=== PATIENT | female | born 1990 | race Caucasian/White ===

== ENCOUNTER 2022-07-30 18:39 | Inpatient (IN) | payer BC ==
[2022-07-30 19:03] VITALS: BMI 26.1
[2022-07-30] MEDS ORDERED: Methylergonovine 0.2 MG/ML VIAL IM PRN (20:16)
[2022-07-30] MEDS ORDERED: Ondansetron PF 4 MG/2 ML Vial IVP PRN ×2 (20:16→22:42)
[2022-07-30] MEDS ORDERED: Acetaminophen 500 MG TAB PO PRN (20:16)
[2022-07-30] MEDS ORDERED: Carboprost 250 MCG/ML AMP IM PRN (20:16)
[2022-07-30] MEDS ORDERED: Promethazine HCl 25 MG/ML VIAL IM PRN ×2 (20:16→22:42)
[2022-07-30] MEDS ORDERED: hydrALAZINE 20 MG/ML VIAL SLOW IVP PRN (20:16)
[2022-07-30] MEDS ORDERED: Diphenoxylate HCl/Atropine Tablet PO PRN (20:16)
[2022-07-30] MEDS ORDERED: Misoprostol 200 MCG TAB PR PRN (20:16)
[2022-07-30] MEDS ORDERED: Lidocaine 1% (PF) 30 ML VIAL SC PRN (20:16)
[2022-07-30] MEDS ORDERED: Butorphanol Tartrate 1 MG/ML VIAL SLOW IVP PRN (20:16)
[2022-07-30] MEDS ORDERED: Lactated Ringer's 1,000 ML IV SCH (20:30)
[2022-07-30] MEDS ORDERED: NS w/ Oxytocin 30 units 500 ML IV SCH ×2 (20:30)
[2022-07-30 21:11] LABS: Hemoglobin 12.1 g/dL (12.0-15.5); Mean Corpuscular HGB CONC 34.9 g/dL (32.0-36.0); Mean Corpuscular Hemoglobin 31.8 pg (27.0-33.0); Mean Corpuscular Volume 91.3 fl (81.6-98.3); Mean Platelet Volume 10.5 fl (7.4-10.4); Platelet Count 245 10x3/uL (150-450); RBC Distribution Width 13.6 % (11.5-14.5); White Blood Cell (WBC) Count 10.8 10x3/uL (3.5-10.5)
[2022-07-30] MEDS ORDERED: Fentanyl 2 mcg/Bup 0.1% Cadd 100 ML ONE (21:22)
[2022-07-30] MEDS ORDERED: Lactated Ringer's 500 ML IV PRN (22:42)
[2022-07-30] MEDS ORDERED: Moisturizing Cream (Eucerin) 113 GM JAR TOP PRN (22:42)
[2022-07-30] MEDS ORDERED: Acetaminophen 325 MG TAB PO PRN (22:42)
[2022-07-30] MEDS ORDERED: diphenhydrAMINE 50 MG/ML VIAL IVP PRN (22:42)
[2022-07-30] MEDS ORDERED: Naloxone HCl 0.4 mg/ml Vial IVP PRN ×2 (22:42)
[2022-07-30] MEDS ORDERED: ePHEDrine Sulfate 50 MG/10 ML VIAL SLOW IVP PRN (22:42)
[2022-07-30] MEDS ORDERED: Fentanyl 2 mcg/Bupivacaine 0.1% Cassette 100 ML EPIDURAL SCH (22:45)
[2022-07-30] MEDS ORDERED: Communication Order-Pharmacy FS SCH (22:45)
[2022-07-30 22:53] LABS: Syphilis Antibody Nonreactive (Nonreactive); Syphilis Antibody Index 0.03 S/CO (<1.00 Non-Reactive)
[2022-07-30 22:54] LABS: HBSAg Index 0.15 S/CO (0-0.99); Hep B Surf Ag Non-Reactive S/CO (NonReactive)
[2022-07-31 01:02] LABS: SARS-CoV-2 NAA Rapid Test Not Detected (NotDetected)
[2022-07-31] MEDS ORDERED: Bupivacaine PF 0.5% 30 ML VIAL ONE (11:00)
[2022-07-31] MEDS ORDERED: Bisacodyl 10 MG SUPP PR PRN (11:51)
[2022-07-31] MEDS ORDERED: hydrALAZINE 20 MG/ML VIAL SLOW IVP PRN (11:51)
[2022-07-31] MEDS ORDERED: Ondansetron PF 4 MG/2 ML Vial IVP PRN (11:51)
[2022-07-31] MEDS ORDERED: Boostrix 0.5 ML (Tdap) VIAL (>/=7 yrs of age) IM ONE (11:51)
[2022-07-31] MEDS ORDERED: Preparation H Ointment 28 GM TUBE PR PRN (11:51)
[2022-07-31] MEDS ORDERED: Milk Of Magnesia 30 ML UDCUP PO PRN (11:51)
[2022-07-31] MEDS ORDERED: Lanolin Ointment 7 GM TUBE TOP PRN (11:51)
[2022-07-31] MEDS ORDERED: diphenhydrAMINE 25 MG CAP PO PRN (11:51)
[2022-07-31] MEDS ORDERED: Witch Hazel-Glycerin 1 EACH JAR TOP PRN (11:53)
[2022-07-31] MEDS ORDERED: NS w/ Oxytocin 30 units 500 ML IV SCH (12:00)
[2022-07-31] MEDS: Ferrous Sulfate 325 MG TAB PO SCH (13:58)
[2022-07-31] MEDS ORDERED: Ibuprofen 800 MG TAB PO SCH (14:45)
[2022-07-31] MEDS: Ibuprofen 800 MG TAB PO SCH (21:47)
[2022-07-31] MEDS: Docusate 100 MG CAP PO SCH (21:47)
[2022-07-31] MEDS ORDERED: Zolpidem Tartrate 5 MG TAB PO PRN (23:00)
[2022-07-31] MEDS ORDERED: HYDROcodone/Acetaminophen 5/325 mg Tablet PO PRN ×2 (23:00)
[2022-08-01] MEDS: Ibuprofen 800 MG TAB PO SCH ×2 (05:26→13:40)
[2022-08-01] MEDS ORDERED: Prenatal Vitamin 1 TAB PO SCH (09:00)
[2022-08-01] MEDS: Docusate 100 MG CAP PO SCH (09:10)
[2022-08-01] MEDS: Ferrous Sulfate 325 MG TAB PO SCH (09:15)
[2022-08-01 11:39] VITALS: BP 109/66; TEMP 97.5
== END 2022-08-01 14:30 | disposition home or self-care (01) | DRG 807 ==
LOC: CSHLD/OP 18:39 → CSHLD 21:11 → CSHPP 07-31 14:15
PROVIDERS: ADMIT Obstetrics & Gynecology; ATTEND Obstetrics & Gynecology
PROC: 10E0XZZ Delivery of Products of Conception, External Approach (ICD-10-PCS; principal; 2022-07-31)
PROC: 10907ZC Drainage of Amniotic Fluid, Therapeutic from Products of Conception, Via Natural or Artificial Opening (ICD-10-PCS; 2022-07-31)
PROC: 0HQ9XZZ Repair Perineum Skin, External Approach (ICD-10-PCS; 2022-07-31)
DX: O99.02 Anemia complicating childbirth (principal); Z37.0 Single live birth; Z3A.38 38 weeks gestation of pregnancy; Z20.822 Contact with and (suspected) exposure to COVID-19; Z79.899 Other long term (current) drug therapy; Z88.0 Allergy status to penicillin; D64.9 Anemia, unspecified; O70.0 First degree perineal laceration during delivery
CPT/HCPCS: 36415; 51702; 85027; 86780; 86850; 86900; 86901; 87340; 99285; J2590; S0020; U0002